=== PATIENT | female | born 1975 | race Caucasian/White ===

== ENCOUNTER → 2023-10-19 06:24 | Day surgery (SDC) | payer BC, SELFPAY | LOC: GI 06:24 | PROVIDERS: ATTENDING PHYSICIAN Internal Medicine Gastroenterology | DX: Z12.11 Encounter for screening for malignant neoplasm of colon (principal); K63.5 Polyp of colon; D12.8 Benign neoplasm of rectum; Q43.8 Other specified congenital malformations of intestine | CPT/HCPCS: 45385; 88305 ==